=== PATIENT | male | born 1955 | race Caucasian/White ===

== ENCOUNTER 2020-07-19 07:34 | Outpatient (CLI) | payer MEDICARE, SELFPAY ==
--- NOTE | ~2020-07-19 | US_ITS ---
EXAMINATION: US thyroid EXAM DATE: 07/19/2020 15:21 INDICATION: Nontoxic goiter. TECHNIQUE: Multiple grayscale and Doppler images of the thyroid were obtained (by a technologist who performed the scan) and subsequently reviewed. Individual nodules and recommendations may be reporte d in accordance with TI-RADS system as designated by the 2017 ACR White Paper TI-RADS committee. The re is no prior study for comparison. FINDINGS: The right thyroid lobe measures 5.1 x 2.2 x 1.9 cm, the left measuring 5.0 x 2.5 x 1.9 cm. Measuremen ts are mildly enlarged. Mildly heterogeneous thyroid echogenicity with several tiny nodules identifie d, measuring up to 4 mm. These are not likely clinically significant. Return to clinical follow-up an d if additional palpable abnormality develops consider repeat ultrasound. IMPRESSION: Mild thyromegaly. Reviewed, dictated and finalized at location A. IMPRESSION: Mild thyromegaly.
--- NOTE | ~2020-07-19 | MR_ITS ---
EXAMINATION: MR brain/brain stem wo con EXAM DATE: 07/19/2020 08:52 INDICATION: Dementia. TECHNIQUE: Magnetic resonance imaging (MRI) of the brain/brain stem obtained without contrast. Sagitt al T1, axial diffusion, gradient echo (T2*), T1, T2, FLAIR sequences obtained. There is no prior st udy for comparison. FINDINGS: There are no areas of restricted diffusion to suggest acute infarction. There is no acute hemorrhage seen on the T2*, a hemosiderin sensitive sequence. No intraparenchymal brain mass lesion. There is mild periventricular and subcortical T2/FLAIR signal hyperintensity, nonspecific but probab ly related to small vessel ischemic disease (microangiopathy). Incidental note made of fat signal in tensity along the left side of the tectal plate, a lipoma. No other foci are present. There are no ex tra-axial collections. Flow voids are seen in the cerebral arteries on the T2-weighted sequences con sistent with their expected patency. The orbits are unremarkable. Soft tissue is unremarkable. IMPRESSION: 1. Mild microangiopathy. 2. 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 Reviewed, dictated and finalized at location A.
--- NOTE | ~2020-07-19 | XR_ITS ---
EXAMINATION: XR hand BI arthritis min 3V EXAM DATE: 07/19/2020 08:15 INDICATION: Pain in the joints of right hand. TECHNIQUE: Right hand frontal, lateral and oblique projections obtained and reviewed. Left hand fron fiorella, lateral and oblique projections obtained and reviewed. Catchers projection of both hands. There is no prior study for comparison. FINDINGS: There is mild right 1st metacarpal phalangeal, 2nd and 3rd distal interphalangeal primary o steoarthritis. Similar distribution, appearance to the left hand primary osteoarthritis. There are n o bony erosions identified. There are no acute fractures or dislocations identified. There is no sub cutaneous gas. The soft tissue is unremarkable. There are no radiopaque foreign bodies. IMPRESSION: Mild polyarticular bilateral hand osteoarthritis. Reviewed, dictated and finalized at location A.
== END 2020-07-19 07:35 | disposition home or self-care (01) ==
PROVIDERS: PCP Family Medicine; Visit Provider Physician Assistant Medical
DX: M25.541 Pain in joints of right hand (principal); M25.542 Pain in joints of left hand; F03.90 Unspecified dementia, unspecified severity, without behavioral disturbance, psychotic disturbance, mood disturbance, and anxiety; E04.1 Nontoxic single thyroid nodule; E78.2 Mixed hyperlipidemia
CPT/HCPCS: 70551; 73130; 76536

== ENCOUNTER 2023-06-10 13:58 | Outpatient (CLI) | payer MEDICARE, SELFPAY ==
--- NOTE | ~2023-06-10 | XR_ITS ---
EXAM: XR shoulder RT min 2V DATE: 06/10/2023 14:25 HISTORY: PAIN IN RIGHT SHOULDER AP AND AXILLARY VIEWS ONLY . COMPARISON: 05/13/2017. FINDINGS: Normal mineralization. No fracture or dislocation. No lytic or blastic lesion. Mild degene rative change at the AC joint and glenohumeral joint. No erosion or periosteal change. Soft tissues w ithin normal limits. IMPRESSION: Mild polyarticular right shoulder osteoarthritis. Reviewed, dictated and finalized at location K.
== END 2023-06-10 13:59 | disposition home or self-care (01) ==
PROVIDERS: PCP Family Medicine; Visit Provider Specialist
DX: M19.011 Primary osteoarthritis, right shoulder (principal)
CPT/HCPCS: 73030

== ENCOUNTER → 2023-07-20 08:03 | Outpatient (CLI) | payer MEDICARE, SELFPAY ==
--- NOTE | ~2023-07-20 | MR_ITS ---
MRI of the brain Clinical History: Ataxia Technique: Axial and sagittal T1-weighted images were acquired. These were followed by axial T2-weigh karol, diffusion weighted, gradient, and FLAIR images. Thin cut coronal T1-weighted and T2-weighted stephanie ges, and thin cut axial T1-weighted images were acquired through the internal auditory canals. Findings: There is no acute infarct or intracranial hemorrhage. There is a small lipoma along the pos terior margin of the guido, just left of midline. No other intracranial mass identified. There are mil d chronic white matter changes in the periventricular white matter bilaterally. Ventricles and subarachnoid spaces are unremarkable. Orbits are unremarkable. Paranasal sinuses and m astoid air cells are clear. Major intracranial flow voids appear intact. Sagittal midline structures are intact. No mass lesion identified at the internal auditory canals or cerebellopontine angle regions. IMPRESSION: Small lipoma just posterior to the guido, just left of midline. Minimal chronic white matter changes. Reviewed, dictated and finalized at location .
== END ==
PROVIDERS: PCP Family Medicine; Visit Provider Family Medicine
DX: R27.0 Ataxia, unspecified (principal)
CPT/HCPCS: 70551

== ENCOUNTER 2024-12-22 01:04 | Day surgery (SDC) | payer MEDICARE, SELFPAY ==
[2024-12-07 09:09] VITALS: BMI 29.5
--- OUTSIDE RECORDS SUMMARY | 2024-12-22 01:07 | XMS_ITS | Clinical Summary ---
Author Organization [facility] Address [address] [place] [address] Care Team Providers Care Fingerprint Expert Name Role Phone Sean Abdi MD Primary Care Provider [phone] Allergies No known active allergies Medications FLUoxetine 20 MG capsule Take 20 mg by mouth daily. Active nebivolol 5 MG tablet Take 2.5 mg by mouth 2 (two) times a day. Active aspirin EC (ASPIRIN EC) 81 MG tablet Take 81 mg by mouth daily. Active famotidine 20 MG tablet Take 20 mg by mouth 2 (two) times daily. Active multi vitamin/mineral s tablet Take 1 tablet by mouth daily. Active vitamin D3, cholecalciferol , 5000 UNITS capsule Take 5,000 Units by mouth daily. Active acetaminophen 500 MG tablet Take 500 mg by mouth nightly as needed for Pain. Active diphenhydrAMINE 25 MG capsule Take 25 mg by mouth nightly as needed for Itching. Active cetirizine 10 MG tablet Take 10 mg by mouth daily. Active febuxostat 40 MG tablet Take 40 mg by mouth daily. 12/18/2020 Active lovastatin 20 MG tablet Take 20 mg by mouth daily with supper. 12/18/2020 Active pantoprazole EC 40 MG tablet Take 1 tablet (40 mg total) by mouth daily. 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 Never 01/24/2021 Average Number of Drinks Not on file 021 Frequency of Binge Drinking Not on file 01/07 Sex and Gender Information Value Date Recorded Sex Assigned at Not on file Legal Sex Male 9:07 PM CDT Gender Identity Not on file Sexual Orientation Not on file Last Filed Vital Signs Vital Sign Reading Time Taken Comments Blood Pressure 113/69 01/25/2021 11:00 AM CDT Pulse 76 01/25/2021 11:00 AM CDT Temperature 36.9 C (98.4 F) 01/25/2021 11:00 AM CDT Respiratory Rate 21 01/25/2021 11:0 0 AM CDT Oxygen Saturation 95% 01/25/2021 11: 00 AM CDT Inhaled Oxygen Concentration - - Weight 105.3 kg (232 lb 2.3 oz) 01/25/2021 2:11 AM CDT Height 177.8 cm (5' 10 ) 01/25/2021 2:11 AM CDT Body Mass Index 33.31 01/25/2021 2:11 AM CDT Plan of Treatment Health Maintenance Due Date Last Done Comments Colorectal Cancer Screening Colonoscopy (10 Years) 1955 Hepatitis C 01/09/1972 DTaP, Tdap and Td Vaccines ( 1 - Tdap) 1973 Zoster Vaccines (1 of 2) 01/09/2004 Annual Medicare Wellness Visit 2019 Pneumococcal Vaccine: 65+ Years (2 of 2 - PPSV23 or PCV20) 07/11/2021 07/11/2020 COVID-19 Vaccine (3 - 2023-2 5 season) 2024 01/22/2021, 12/22/2020 Influenza Adult (#1) 2024 08/17/2019 RSV Immunization or 60+ Years (1 - 1-dose 75+ series) 2029 Meningococcal B Vaccine Aged Out No l onger eligible based on patient's age to complete this topic Meningococcal Vaccine Aged Out No mario aurora eligible based on patient's age to complete this topic RSV Immunizations Under 20 Months Aged Out No longer eligible b ased on patient's age to complete this topic Insurance Advance Directives * Full Code (Latest Code Status on File) Date Activated Date Inactivated Comments 01/25/2021 2:25 AM 01/25/2021 6:31 PM Care Teams Fingerprint Expert Relationship Specialty Start Date End Date Sean Abdi MD PCP - General FAMILY PRACTICE 01/24/21
--- OUTSIDE RECORDS SUMMARY | 2024-12-22 01:07 | XMS_ITS | Encounter Summary ---
Author Organization [facility] Address [address] [place] [address] Phone Care Team Providers Care Precision Thread Grinder Operator Name Role Phone Sean Abdi MD Primary Care Provider [phone] [phone] Encounter Details Date Type Department Care Team (Latest Contact Info) Description 07/19/2020 Orders Only [facility] Scanning, Provider Social History Tobacco Use Types Packs/Day Years Used Date Smoking Tobacco: Never Sex and Gender Information Value Date Recorded Sex Assigned at Not on file Legal Sex Male 8:38 PM HOOKMAN Gender Identity Not on file Sexual Orientation Not on file documented as of this encounter Plan of Treatment Not on file documented as of this encounter Procedures Procedure Name Priority Date/Time Associated Diagnosis Comments SCAN - RADIOLOGY/IMAGING 07/19/2020 documented in this encounter Results * SCAN - RADIOLOGY/IMAGING (07/19/2020) Anatomical Region Laterality Modality Other us Provider Scanning Final Result documented in this encounter Visit Diagnoses Not on filedocumented in this encounter Care Teams Precision Thread Grinder Operator Relationship Specialty Start Date End Date Sean Abdi MD PCP - General 03/13/17 documented as of this encounter
--- OUTSIDE RECORDS SUMMARY | 2024-12-22 01:07 | XMS_ITS | Clinical Summary ---
Author Organization [facility] Address [address] [place] [address] Care Team Providers Care Forest Logistics Manager Name Role Phone Sean Abdi MD Primary Care Provider [phone] [phone] Allergies No known active allergies Medications febuxostat (ULORIC) 40 mg tabletIndications: prevention of acute gout attack Take 1 tablet (40 mg total) by mouth every morning 12/18/19 21 Active FLUoxetine (PROzac) 20 mg capsuleIndications :depression Take 1 capsule (20 mg total) by mouth every morning 12/18/19 21 Active lovastatin (MEVACOR) 20 mg tabletIndications: hyperlipidemia Take 1 tablet (20 mg total) by mouth nightly 12/18/19 21 Active Bystolic 5 mg tablet 12/18/19 21 Active omeprazole (PriLOSEC) 20 mg capsuleIndications :Treatment of Non-Bleeding Gastric Disorder Take 1 capsule (20 mg total) by mouth every morning Active cetirizine (ZyrTEC) 10 mg tablet Take 1 tablet (10 mg total) by mouth daily as needed for allergies Active tdxazwwjdffr-fdb-z christal-FA-vit K (Bariatric Multivitamins) 45 mg iron- 800 mcg-120 mcg capsuleIndications :Mineral Deficiency Prevention,Vitamin Deficiency Prevention daily Active cholecalciferol (VITAMIN D-3) 1,000 unitIndications:yang pplement Take 1 tablet/capsule (1,000 Units total) by mouth daily Active diphenhydrAMINE (BENADRYL) 25 mg capsule Take 1 tablet/capsule (25 mg total) by mouth nightly as needed for sleep Active magnesium gluconate 200 mg tabletIndications: hypomagnesemia Take 2.5 tablets (500 mg total) by mouth economics instructor before breakfast Active gabapentin (NEURONTIN) 300 mg capsuleIndications :Carpal Tunnel Syndrome Take 1 capsule (300 mg total) by mouth 3 (three) times a day 90 capsule 5 03/29/20 24 Active tamsulosin (FLOMAX) 0.4 mg extended release capsule Take 1 capsule (0.4 mg total) by mouth daily for 7 days 7 capsule 05/18/20 24 Active Additional Information Patient not taking.Reported on 07/06/2024 oxyCODONE (ROXICODONE) 5 mg immediate release tabletIndications: Pain Take 1 tablet (5 mg total) by mouth every 4 (four) hours as needed for pain (severe pain) 15 tablet 05/18/20 Active Additional Information Patient not taking.Informant: Self, Reported on 07/06/2024 naproxen (NAPROSYN) 375 mg tablet Take 1 tablet (375 mg total) by mouth 2 (two) times a day with meals 30 tablet 05/18/20 Active Additional Information Patient not taking.Informant: Self, Reported on 07/06/2024 ondansetron ODT (ZOFRAN-ODT) 4 mg disintegrating tablet Take 1 tablet (4 mg total) by mouth every 8 (eight) hours as needed for nausea or vomiting 10 tablet 05/18/20 24 Active predniSONE (DELTASONE) 10 mg tablet 06/07/20 Active lisinopriL (PRINIVIL,ZESTRIL) 10 mg tablet Take 1 tablet (10 mg total) by mouth daily 07/27/20 Active cephalexin (KEFLEX) 500 mg capsule TAKE 1 CAPSULE BY MOUTH FOUR TIMES DAILY UNTIL ALL TAKEN 07/29/20 24 Active Active Problems Problem Noted Date Diagnosed Date Right carpal tunnel syndrome 07/06/2024 Frequent falls 09/24/2023 Gait instability 09/24/2023 Assessment & Plan (09/24/2023 2:13 PM HELMET HAT SWEATBAND PUNCHER): He has gait instability with frequent falls that began 6 months ago, though per his chart there may have been more subtle changes dating back 4-5 years (onset age ~64). There is no evidence of parkinsonism or ataxia on exam, but he does endorse long-standing numbness in the feet with diminished temperature and vibratory sensation bilaterally. On Romberg, he swayed and was unsteady but was able to self-correct, and proprioception was intact in the toes. Overall I think a sensory peripheral neuropathy is the most likely cause of his balance issues, and we will test for causes of neuropathy. Patellar reflexes were also brisk, and MRI to rule out cervical myelopathy is also warranted. If this workup is unrevealing I will likely refer him for EMG/NCS to confirm and further characterize the neuropathy and guide further testing. Recommendations: -check for causes of myelopathy / neuropathy -- CBC, CMP, B12, MMA, copper, vitamin E, SPEP with immunofixation, HIV, RPR -MRI C-spine w/o contrast to rule out a compressive myelopathy -if unrevealing, consider EMG/NCS Idiopathic peripheral neuropathy 09/24/2023 Assessment & Plan (03/29/2024 10:30 PM CDT): He has gait instability with frequent falls that began 6 months ago, though per his chart there may have been more subtle changes dating back 4-5 years (onset age ~64). There is no evidence of parkinsonism or ataxia on exam, but he does endorse long-standing numbness in the feet with diminished temperature and vibratory sensation bilaterally. On Romberg, he swayed and was unsteady but was able to self-correct, and proprioception was intact in the toes. Overall I think a sensory peripheral neuropathy is the most likely cause of his balance issues, and we will test for causes of neuropathy. MRI C-spine did not show any cervical myelopathy as a contributing factor. Today his chief complaint in pain and weakness in both hand exacerbated by activity. EMG/NCS showed bilateral carpal tunnel syndrome and more diffuse peripheral neuropathy. We discussed treatment options including a trial of gabapentin for symptomatic relief, splinting at night, and referral to OT. I also provided a referral to Ortho for surgical evaluation if these conservative measures do not provide relief. Finally, we discussed that transitioning to the Neuromuscular clinic will be best for prison management of his neuropathy, who may consider other testing for an underlying cause. 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 Pancreatic neoplasm 12/29/2013 Calculus of kidney 07/25/2013 Immunizations Name Administration Dates Next Due Influenza, Quadrivalent, Rec ombinant, Egg Free, Preservative Free, Intramuscular 08/17/2019 Pneumococcal Conjugate PCV 13 07/11/2020 Surgical History Surgery Date Site/Laterality Comments KNEE SURGERY 11/09/1999 - 11/08/2000 Left HAND SURGERY Left trigger finger unknown date SHOULDER SURGERY 11/09/2023 - 11/08/2024 Right LIPOMA RESECTION 11/09/2008 - 11/08/2009 stomach SHOULDER SURGERY 11/09/2003 - 11/08/2004 Left Medical History Medical History Date Comments HTN (hypertension) Depression Hyperlipidemia Pancreatic mass Neuropathy (CMS/HCC) Kidney stones MICHA (acute kidney injury) (HCC) due to bactrim --improved after cessation 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 Sleep apnea Family History Medical History Relation Name Comments Dementia Maternal Grandfather Epilepsy Maternal cousin 1 Childhood onset Epilepsy Maternal cousin 2 Childhood onset Dementia Mother's Sister 1 Dementia Mother's Sister 2 Anesthesia problems Neg Hx Relation Name Status Comments Maternal Grandfather Maternal cousin 1 Alive Maternal cousin 2 Alive Mother's Sister 1 Alive Mother's Sister 2 Alive Social History Tobacco Use Types Packs/Day Years Used Date Smoking Tobacco: Never Cigarettes Passive Smoke Exposure: Never Smokeless Tobacco: Never Tobacco Cessation:Counseling Given: Not Answered Alcohol Use Standard Drinks/Week Comments Never 0 (1 standard drink = 0.6 oz pur e alcohol) AUDIT-C Answer Date Recorded Q1: How often do you have a drink containing alcohol? Never 07/18/2024 Q2: How many drinks containi ng alcohol do you have on a typical day when you are drinking? Patient does not drink Q3: How often do you have si x or more drinks on one occasion? Never 07/18/2024 Personal Safety Answer Date Recorded Have you ever been in or are you currently in a harmful physical or emotional relationship or is someone making you feel afraid or unsafe? Denies 07/18/2024 Sex and Gender Information Value Date Recorded Sex Assigned at Not on file Legal Sex Male 8:38 PM HELMET HAT SWEATBAND PUNCHER Gender Identity Not on file Sexual Orientation Not on file Obstetrics History Last Filed Vital Signs Vital Sign Reading Time Taken Comments Blood Pressure 136/94 07/18/2024 10:10 AM CDT Pulse 66 07/18/2024 10:10 AM CDT Temperature 36 C (96.8 F) 07/18/2024 9:51 AM CDT Respiratory Rate 13 07/18/2024 10:1 0 AM CDT Oxygen Saturation 93% 07/18/2024 10: 10 AM CDT Inhaled Oxygen Concentration - - Weight 99.2 kg (218 lb 12.8 oz) 024 7:59 AM CDT Height 177.8 cm (5' 10 ) 07/18/2024 7:59 AM CDT Body Mass Index 31.39 07/18/2024 7:59 AM CDT Plan of Treatment Health Maintenance Due Date Last Done Comments Colon Cancer Screening-Colonoscopy 1955 Depression Screening 1955 Hepatitis C Screening 1955 DTaP/Tdap/Td Vaccine (1 - Tdap) 1965 Hepatitis B Screening 01/09/1972 Zoster Vaccine (1 of 2) 01/09/2004 Well Visit 65+ 2019 Pneumococcal vaccine 65+ (2 of 2 - PPSV23 or PCV20) 07/11/2020 Influenza Vaccine (#1) 2024 08/17/2019 Fall Risk Assessment 07/18/2025 07/18/2024 Insurance MEDICARE SOLUTIONS [place] [id number] MEDICARE SOLUTIONS MEDICARE [employer] [place] [id number] Care Teams Forest Logistics Manager Relationship Specialty Start Date End Date Sean Abdi MD PCP - General 03/13/17
--- OUTSIDE RECORDS SUMMARY | 2024-12-22 01:07 | XMS_ITS | Referral Summary ---
Author Organization [facility] Address [address] [place] [address] Care Team Providers Care Search Director Name Role Phone Sean Abdi MD Primary Care Provider [phone] [phone] Allergies No known active allergies Medications febuxostat [...] mouth daily as needed for allergies Active jevhohmridzz-oim-s christal-FA-vit K (Bariatric Multivitamins) 45 mg iron- [...] 2.5 tablets (500 mg total) by mouth early childhood education coordinator before breakfast Active gabapentin (NEURONTIN) 300 mg [...] 09/24/2023 Assessment & Plan (09/24/2023 2:13 PM SENIOR PLANNING ANALYST): He has gait instability with frequent falls [...] the Neuromuscular clinic will be best for [facility]ci management of his neuropathy, who may consider [...] Intramuscular 08/17/2019 Pneumococcal Conjugate PCV 13 07/11/2020 Social History Tobacco Use Types Packs/Day Years [...] on file Legal Sex Male 8:38 PM SENIOR PLANNING ANALYST Gender Identity Not on file Sexual Orientation [...] Weight 99.2 kg (218 lb 12.8 oz) 07/18/2024 7:59 AM CDT Height 177.8 cm (5' 10 ) 07/18/2024 7:59 AM CDT Body Mass Index 31.39 07/18/2024 7:59 AM CDT Plan of Treatment Not on file Insurance MEDICARE SOLUTIONS MEDICARE SOLUTIONS MED[employer]ARE SOLUTIONS Care Teams Search Director Relationship Specialty Start Date End Date Sean Abdi MD PCP - General 03/13/17
[2024-12-22 08:59] VITALS: BP 157/91; PULSE 97; RESP 16; TEMP 36.3; O2SAT 96
[2024-12-22] MEDS: LACTATED RINGERS 1,000 ML 150 ML IV CONT (09:06)
--- NOTE | 2024-12-22 09:28 | WPDANESEPPF ---
Anes - Initial Pre Proc Eval Procedure: Operation Date: 12/22/24 10:00 Proposed Procedures p Screening Colonoscopy - Alex Kelly MD Date/Time: 12/22/24 09:28 Surgeon: Alex Kelly MD Pre Op Diagnosis: neoplasm screening Patient Data Age: 69 Gender: M Height: 1.75 m Weight: 97.4 kg Last Vital Signs Temp 36.3 C L 12/22/24 08:59 Pulse 97 12/22/24 08:59 Resp 16 12/22/24 08:59 BP 157/91 H 12/22/24 08:59 Pulse Ox 96 12/22/24 08:59 Allergies Allergy/AdvReac Type Severity Reaction Status Date / Time lisinopril Allergy Mild Cough Verified 12/22/24 08:55 Home Medications ?Medication ?Instructions ?Recorded ?Confirmed ?Type cholecalciferol (vitamin D3) 25 25 mcg PO DAILY 07/11/20 12/22/24 History mcg (1,000 unit) capsule multivitamin 1 tablet PO DAILY 07/11/20 12/22/24 History cetirizine 10 mg tablet (Zyrtec) 10 mg PO DAILY 05/18/23 12/22/24 History magnesium oxide 500 mg PO DAILY 05/18/23 12/22/24 History febuxostat 40 mg tablet 40 mg PO .qday 10/08/23 12/22/24 History omeprazole 20 mg capsule,delayed 20 mg PO DAILY 10/08/23 12/22/24 History release irbesartan 300 mg tablet 300 mg PO DAILY #90 tabs 09/19/24 12/22/24 Rx fluoxetine 20 mg capsule 20 mg PO DAILY #90 caps 11/22/24 12/22/24 Rx lovastatin 20 mg tablet 20 mg PO DAILY #90 tabs 11/22/24 12/22/24 Rx gabapentin 300 mg capsule mg PO 12/20/24 History Patient hx anesthesia problems: none Family hx anesthesia problems: none Results Review: All pre-operative results and documents have been reviewed as part of the pre-operative evaluation. [facility] Past Medical History Medical History (Updated 12/22/24 @ 09:28 by Eliot Gil MD) Essential (primary) hypertension Ataxia Brain lipoma Prediabetes Mild cognitive impairment Surgical History Surgical History History of carpal tunnel surgery H/O repair of rotator cuff Family History Family History Mother Hypertension Father Hypertension Family history of elevated blood lipids Family history of chronic obstructive pulmonary disease Other Family history of hypercholesterolemia Social History Social History Smoking status: Never smoker Alcohol intake: never Lack of Transportation: No Lack of Food: Never True Current Housing: I Have Housing Concerned About Future Housing: No Difficulty Paying Gas/Electric Bills: No Difficulty Paying for Meds: No Currently Unemployed: No Education: Associate Degree Difficulty w/ Childcare or Family Care: No Living arrangements: with family Spiritual care concerns: No Anes - Eval Final PreProcedure Day of Procedure 12/22/24 09:28 Patient weight: obese Heart: regular rate and rhythm Lungs: clear to auscultation Airway: Mallampati scale class II Neurological: alert and oriented Last oral intake: >/= 8 hours ASA classification: III Emergent: no Anesthetic plan: proceed Anesthesia type and monitoring: general GIVS and standard monitoring Results Review: All pre-operative results and documents have been reviewed as part of the pre-operative evaluation. Informed Consent: The patient's anesthetic plan and its attendant risks and benefits were discussed with the patient/family/POA. Questions were solicited and answers provided to the satisfaction of the patient/family/POA.
--- NOTE | 2024-12-22 09:52 | PM.HPGS ---
History of Present Illness History of Present Illness Consent: Risks, benefits, and alternatives have been discussed and questions answered. Patient agrees to proceed with procedure. Chief complaint: neoplasm screening Narrative: Ahsan Arriola Jr. is a 69 year old male here for screening colonoscopy, last one 2003 Review of Systems Review of Systems: All systems reviewed & are unremarkable except as noted in HPI and below PMFSH Past Medical History Medical History (Updated 12/22/24 @ 09:28 by Eliot Gil MD) Essential (primary) hypertension Ataxia Brain lipoma Prediabetes Mild cognitive impairment Surgical History Surgical History History of carpal tunnel surgery H/O repair of rotator cuff Family History Family History Mother Hypertension Father Hypertension Family history of elevated blood lipids Family history of chronic obstructive pulmonary disease Other Family history of hypercholesterolemia Social History Social History Smoking status: Never smoker Alcohol intake: never Lack of Transportation: No Lack of Food: Never True Current Housing: I Have Housing Concerned About Future Housing: No Difficulty Paying Gas/Electric Bills: No Difficulty Paying for Meds: No Currently Unemployed: No Education: Associate Degree Difficulty w/ Childcare or Family Care: No Living arrangements: with family Spiritual care concerns: No Meds Home Medications and Allergies Home Medications ?Medication ?Instructions ?Recorded ?Confirmed ?Type cholecalciferol (vitamin D3) 25 25 mcg PO DAILY 07/11/20 12/22/24 History mcg (1,000 unit) capsule multivitamin 1 tablet PO DAILY 07/11/20 12/22/24 History cetirizine 10 mg tablet (Zyrtec) 10 mg PO DAILY 05/18/23 12/22/24 History magnesium oxide 500 mg PO DAILY 05/18/23 12/22/24 History febuxostat 40 mg tablet 40 mg PO .qday 10/08/23 12/22/24 History omeprazole 20 mg capsule,delayed 20 mg PO DAILY 10/08/23 12/22/24 History release irbesartan 300 mg tablet 300 mg PO DAILY #90 tabs 09/19/24 12/22/24 Rx fluoxetine 20 mg capsule 20 mg PO DAILY #90 caps 11/22/24 12/22/24 Rx lovastatin 20 mg tablet 20 mg PO DAILY #90 tabs 11/22/24 12/22/24 Rx gabapentin 300 mg capsule mg PO 12/20/24 History Allergies Allergy/AdvReac Type Severity Reaction Status Date / Time lisinopril Allergy Mild Cough Verified 12/22/24 08:55 Vital Signs Vital Signs - 24 hr 12/22/24 08:59 Temperature 97.4 F L Pulse Rate 97 Respiratory Rate 16 Blood Pressure 157/91 H Pulse Oximetry 96 Exam Const: General: comfortable and no acute distress HENMT: Face/Nose/Sinus: Normal nares present Eyes: General: appearance normal, both eyes and all related structures Neck: Neck: no JVD Resp: Auscultation: clear to auscultation bilaterally Cardio: Rate: regular rate Rhythm: regular rhythm GI: Inspection: non-distended GI Palp: Yes Soft to palpation Skin: General skin exam: normal color Neuro: General: gait normal Speech: normal speech Extrem: General: normal to inspection Psych: Mental Status: mental status grossly normal Assessment and Plan Assessment and plan (1) Colon cancer screening: Code(s): Z12.11 - Encounter for screening for malignant neoplasm of colon Status: Acute Assessment and Plan: colonoscopy
[2024-12-22 10:16] VITALS: BP 112/79; PULSE 82; RESP 17; O2SAT 93
[2024-12-22 10:26] VITALS: BP 118/81; PULSE 76; RESP 13; O2SAT 94
[2024-12-22 10:36] VITALS: BP 127/94; PULSE 80; RESP 19; O2SAT 98
== END 2024-12-22 10:52 | disposition home or self-care (01) ==
PROVIDERS: PCP Family Medicine; Visit Provider Internal Medicine Gastroenterology
PROC: 0DJD8ZZ Inspection of Lower Intestinal Tract, Via Natural or Artificial Opening Endoscopic (ICD-10-PCS; CPT 45378; principal; 2024-12-22 10:00)
DX: Z12.11 Encounter for screening for malignant neoplasm of colon (principal); D12.0 Benign neoplasm of cecum; K64.8 Other hemorrhoids; K57.30 Diverticulosis of large intestine without perforation or abscess without bleeding; I10 Essential (primary) hypertension; R73.03 Prediabetes; G31.84 Mild cognitive impairment of uncertain or unknown etiology; E66.9 Obesity, unspecified; Z68.31 Body mass index [BMI] 31.0-31.9, adult; Z98.890 Other specified postprocedural states; Z86.011 Personal history of benign neoplasm of the brain
CPT/HCPCS: 45380; 88305; J2003; J2704; J7120